=== PATIENT | female | born 1970 | race Caucasian/White ===

== ENCOUNTER 2018-01-16 10:11 | Emergency (ER) | payer MEDICAID ==
--- NOTE | 2018-01-16 10:28 | C.PDOC ---
History Of Present Illness 47 y/o female presents to ED with c/o weakness on bilateral upper extremities, pain to left thumb and dizziness since earlier today while at work. 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 Patient reports left neck pain radiating to left arm for "couple of days" and chest pain for 2 days. Patient denies headache, slurred speech, nausea, vomiting, sob, numbness or any other complaints at this time. Time Seen by Provider: 01/16/18 10:24 Chief Complaint (Nursing): Dizziness/Lightheaded History Per: Patient History/Exam Limitations: no limitations Onset/Duration Of Symptoms: Days Current Symptoms Are (Timing): Still Present Past Medical History Reviewed: Historical Data, Nursing Documentation, Vital Signs - Medical History PMH: Anxiety, HTN Surgical History: No Surg Hx Family History: States: No Known Family Hx - Social History Hx Alcohol Use: No Hx Substance Use: No - Immunization History Hx Tetanus Toxoid Vaccination: No Hx Influenza Vaccination: No Hx Pneumococcal Vaccination: No Review Of Systems Constitutional: Negative for: Fever, Chills Cardiovascular: Negative for: Chest Pain Gastrointestinal: Negative for: Nausea, Vomiting, Abdominal Pain Musculoskeletal: Positive for: Neck Pain, Arm Pain. Negative for: Shoulder Pain Skin: Negative for: Rash Neurological: Positive for: Weakness (arms). Negative for: Numbness, Headache Physical Exam - Physical Exam Appears: Non-toxic, No Acute Distress Skin: Warm, Dry, No Rash Head: Atraumatic, Normacephalic Eye(s): bilateral: Normal Inspection Nose: Normal Neck: Normal ROM, Other (Tender to left trapezoid muscle) Chest: Symmetrical Cardiovascular: Rhythm Regular Respiratory: Normal Breath Sounds, No Rales, No Rhonchi, No Wheezing Gastrointestinal/Abdominal: Soft, No Tenderness, No Guarding, No Rebound Extremity: Tenderness (to base of left lateral thumb), No Calf Tenderness, Capillary Refill (<2 seconds), No Deformity, Other (varicose veins on lower legs bilaterally) Neurological/Psych: Oriented x3, Normal Speech, Normal Cognition, Normal Cranial Nerves, Normal Motor (5/5), Normal Sensation Gait: Steady ED Course And Treatment - Laboratory Results Result Diagrams: 01/16/18 10:58 01/16/18 10:58 ECG: Interpreted By Me, Viewed By Me ECG Rhythm: Sinus Rhythm Interpretation Of ECG: Normal intervals, LVH, No ST elevations, No ischemic changes Rate From EC (BPM) O2 Sat by Pulse Oximetry: 100 (RA) NIHSS Stroke Scale 2 - Date/Time Evaluation Performed When Was NIHSS Performed: Baseline - How Severe is the Stroke Level of Consciousness: 0=Alert LOC to Questions: 0=Both comments correct LOC to commands: 0=Obeys both correctly Best Gaze: 0=Normal Visual: 0=No visual loss Facial: 0=Normal Motor Arm - Left: 0=No drift Motor Arm - Right: 0=No drift Motor Leg - Left: 0=No drift Motor Leg - Right: 0=No drift Limb Ataxia: 0=Absent Sensory: 0=Normal Best Language: 0=No aphasia Dysarthia: 0=Normal articulation Extinction & Inattention (Neglect): 0=Normal, no object Score: 0 Medical Decision Making Medical Decision Making: Plan: ECG, CT head, Blood work, UA, CXR ordered CT scan shows sinusitis, which patient states is not acute and states she manages it with medication. 13:33 Case discussed with patient's PMD, Dr. Aleman, who agrees with plan and discharge. Advised patient to follow up in his office within 1-2 days for further evaluation. Disposition Discussed With : Rosalio Mayo Doctor Will See Patient In The: Office Counseled Patient/Family Regarding: Studies Performed, Diagnosis, Need For Followup - Disposition Disposition: HOME/ ROUTINE Disposition Time: 13:39 Condition: STABLE Additional Instructions: ROSIE HUGHES, thank you for letting us take care of you today. Your provider was Brenda Fung MD and you were treated for DIZZINESS. The emergency medical care you received today was directed at your acute symptoms. If you were prescribed any medication, please fill it and take as directed. It may take several days for your symptoms to resolve. Return to the Emergency Department if your symptoms worsen, do not improve, or if you have any other problems. Please contact your doctor in one day for a follow up appointment. Bring any paperwork you were given at discharge with you along with any medications you are taking to your follow up visit. Our treatment cannot replace ongoing medical care by a primary care provider outside of the emergency department. Thank you for allowing the [facility] team to be part of your care today. Instructions: Muscle Spasms (DC), Generalized Weakness (DC), Dizziness, Nonvertigo, (DC) Forms: [facility] ([place]), General Discharge Instructions - POA Present On Arrival: None - Clinical Impression Clinical Impression: Weakness of both arms, Muscle spasm, Dizziness - Scribe Statement The provider has reviewed the documentation as recorded by the Cheyenneibfernando Castro All medical record entries made by the Cheyenneibfernando were at my direction and person ally dictated by me. I have reviewed the chart and agree that the record accurately reflects my personal performance of the history, physical exam, medical decision making, and the department course for this patient. I have also personally directed, reviewed, and agree with the discharge instructions and disposition.
[2018-01-16 11:09] LABS: BASO # 0.2 K/uL (0.0-0.2); EOS # 0.2 K/uL (0.0-0.7); HEMOGLOBIN 11.5 g/dL (11.0-16.0); LYMPH # 1.6 K/uL (1.0-4.3); MEAN PLATELET VOLUME 8.4 fL (7.2-11.7)
[2018-01-16 11:14] VITALS: O2SAT 100
[2018-01-16 11:15] LABS: BASO % 2.8 % (0.0-2.0); EOS % 3.3 % (0.0-4.0); LYMPH % 26.4 % (20.0-40.0); MEAN CORPUSCULAR HEMOGLOBIN 26.8 pg (27.0-31.0); MEAN CORPUSCULAR HGB CONC 32.5 g/dL (33.0-37.0); MONO # 0.4 K/uL (0.0-0.8); NEUT # 3.7 K/uL (1.8-7.0); NEUT % 61.5 % (50.0-75.0); RBC 4.28 Mil/uL (3.80-5.20)
--- NOTE | 2018-01-16 11:20 | RAD ---
HISTORY: chest pain COMPARISON: Chest x-ray performed 07/28/12 TECHNIQUE: Chest PA and lateral FINDINGS: LUNGS: No focal consolidation. Please note that chest x-ray has limited sensitivity for the detection of pulmonary masses. PLEURA: No significant pleural effusion identified. No definite pneumothorax . CARDIOVASCULAR: Heart size appears within normal limits. Faint atherosclerotic calcification present. OSSEOUS STRUCTURES: Degenerative changes of the spine. VISUALIZED UPPER ABDOMEN: Unremarkable. OTHER FINDINGS: None. IMPRESSION: No acute findings identified. See above.
[2018-01-16 11:25] LABS: MEAN CELL VOLUME 82.5 fL (81.0-99.0)
[2018-01-16 11:28] LABS: INR 1.1; PROTHROMBIN TIME 11.6 SECONDS (9.7-12.2)
[2018-01-16 11:33] LABS: ALB/GLOB RATIO 1.4 (1.0-2.1); ALBUMIN 4.7 g/dL (3.5-5.0); BLOOD UREA NITROGEN 14 mg/dL (7-17); CALCIUM 9.6 mg/dl (8.6-10.4); GFR NON-AFRICAN AMERICAN > 60
--- NOTE | 2018-01-16 11:37 | CT ---
Date of service: 01/16/2018 PROCEDURE: CT HEAD WITHOUT CONTRAST. HISTORY: weakness BUE COMPARISON: None available. TECHNIQUE: Axial computed tomography images were obtained through the head/brain without intravenous contrast. Radiation dose: Total exam DLP = 953.16 mGy-cm. This CT exam was performed using one or more of the following dose reduction techniques: Automated exposure control, adjustment of the mA and/or kV according to patient size, and/or use of iterative reconstruction technique. FINDINGS: HEMORRHAGE: No intracranial hemorrhage. BRAIN: No mass effect or edema. The burden-white matter differentiation appears intact. Please note that MRI with diffusion imaging is more sensitive in the detection of acute ischemic event. VENTRICLES: No hydrocephalus. CALVARIUM: Unremarkable. PARANASAL SINUSES: Mucosal thickening of the ethmoid air cells and frontal sinuses. Opacification of the right sphenoid sinus. MASTOID AIR CELLS: Unremarkable as visualized. No inflammatory changes. OTHER FINDINGS: None. IMPRESSION: No acute intracranial pathology identified. Mucosal thickening of the ethmoid air cells and frontal sinuses. Opacification of the right sphenoid sinus. Correlate clinically for sinusitis.
[2018-01-16 11:39] LABS: ALT/SGPT 18 U/L (9-52); AST/SGOT 32 U/L (14-36)
[2018-01-16 12:13] LABS: HCG,QUALITATIVE URINE NEGATIVE (NEGATIVE)
[2018-01-16 12:27] LABS: SQUAMOUS EPITHIAL < 1 /hpf (0-5); URINE BILIRUBIN NEGATIVE (NEGATIVE); URINE BLOOD NEGATIVE (NEGATIVE); URINE CLARITY Clear (Clear); URINE COLOR Straw (YELLOW); URINE GLUCOSE (UA) NORMAL (Normal); URINE LEUKOCYTE ESTERASE NEG Leu/uL (Negative); URINE PROTEIN NEGATIVE (NEGATIVE); URINE UROBILINOGEN NORMAL mg/dL (0.2-1.0)
[2018-01-16 13:02] LABS: BARBITURATES, UR NEGATIVE (NEGATIVE); BENZODIAZEPINES, UR NEGATIVE (NEGATIVE); OPIATES, UR NEGATIVE (NEGATIVE); PHENCYCLIDINE, UR NEGATIVE (NEGATIVE)
[2018-01-16 14:20] VITALS: BP 142/90; PULSE 68; RESP 20; TEMP 97.4
--- NOTE | 2018-01-17 19:58 | CARD ---
APPROVED REPORT Date of service: 01/16/2018 EKG Measurement Heart [id number] <Conclusion> Normal sinus rhythm Moderate voltage criteria for LVH, may be normal variant Borderline ECG
== END 2018-01-16 14:21 | disposition home or self-care (01) ==
LOC: C.ER 10:11
DX: M62.838 Other muscle spasm (principal); R42 Dizziness and giddiness